=== PATIENT | female | born 1945 | race Caucasian/White ===

== ENCOUNTER 2017-04-18 13:04 | Day surgery (SDC) | payer OTHER ==
[2017-04-18] MEDS ORDERED: ACETAMINOPHEN 325 MG TABLET (FP) PO ONE (13:30)
[2017-04-18] MEDS ORDERED: ZOLEDRONIC ACID/MAN/WATER 5 MG/100 ML INFUS..BTL IVPB ONE (13:30)
[2017-04-18 13:40] VITALS: BP 150/64; PULSE 82; BMI 22.3
[2017-04-18 15:31] VITALS: TEMP 97.3
== END 2017-04-18 15:35 | disposition home or self-care (01) ==
LOC: FINFUSION 13:04 → FM/S 13:05 → FINFUSION 15:35
PROVIDERS: ATTEND Specialist
PROC: 3E033GC Introduction of Other Therapeutic Substance into Peripheral Vein, Percutaneous Approach (ICD-10-PCS; principal; 2017-04-18)
DX: M81.0 Age-related osteoporosis without current pathological fracture (principal)
CPT/HCPCS: 96365; J3489

== ENCOUNTER 2017-04-19 14:30 | Emergency (ER) | payer OTHER ==
[2017-04-19 14:42] VITALS: BP 157/79; BMI 22.3
[2017-04-19] MEDS ORDERED: ONDANSETRON 4 MG/2 ML VIAL ONE (14:59)
[2017-04-19] MEDS ORDERED: ONDANSETRON 4 MG/2 ML VIAL IVPUSH ONE (15:02)
[2017-04-19] MEDS ORDERED: HYDROCORTISONE SOD SUCCINATE 2 ML ONE (15:18)
[2017-04-19] MEDS ORDERED: HYDROCORTISONE SOD SUCCINATE 100 MG/2 ML VIAL IVPB ONE (15:18)
[2017-04-19] MEDS ORDERED: SODIUM CHLORIDE 1,000 ML IV STA (15:18)
[2017-04-19] MEDS ORDERED: ACETAMINOPHEN INJECTION 100 ML IVPB ONE (15:28)
[2017-04-19 15:31] LABS: MCH 29.8 pg (25.7-33.7); MCHC 34.5 g/dl (32.0-36.0); MEAN CELL VOLUME 86.5 fl (80-96); MEAN PLT VOLUME 7.5 fl (7.5-11.1); PLATELET COUNT 149 K/MM3 (134-434); RDW 11.7 % (11.6-15.6); WHITE BLOOD COUNT 9.5 K/mm3 (4.0-10.8)
[2017-04-19 15:43] LABS: ALBUMIN 4.1 g/dl (3.5-5.0); ALK PHOS 52 U/L (32-92); ANION GAP 9 (8-16); BILIRUBIN,TOTAL 0.9 mg/dl (0.2-1.0); CALCIUM 8.9 mg/dl (8.4-10.2); CO2 25 mmol/L (22-28); CREATININE 0.6 mg/dl (0.6-1.3); GLUCOSE,RANDOM 109 mg/dl (74-106); MAGNESIUM 1.8 mg/dL (1.8-2.4); PLATELET ESTIMATE ADEQUATE; SGOT/AST 31 U/L (10-42); SGPT/ALT 30 U/L (10-40); TOT PROT 6.6 g/dl (6.4-8.3)
--- NOTE | 2017-04-19 16:01 | PDOC ---
History of Present Illness - General History Source: Patient Exam Limitations: No Limitations - History of Present Illness Initial Comments: 04/19/17 16:13 Patient is a 72 year old woman with a significant past medical history of PMR, HTN and HLP who presents to the ED with complaints of back pain that began at 4: 15am this morning. Patient reports taking Reclast yesterday afternoon for osteoporosis due to steroids taken for PMR and states she was awoken at 4:15am due to intense back pain. She reports taking a tylenol before going back to sleep. Patient states waking up this morning still feeling unwell and states experiencing shaky chills after finishing her breakfast. Patient reports experiencing 3 episodes of vomiting, and states she vomited all vitamins she took this morning so it is possible she vomited any medication taking before eating breakfast. Patient states experiencing general body ache secondary to shaky chills. She reports to be unable to tolerate any liquid PO. Patient reports taking 5 mg of medrol daily , 4 mg in the morning and 1 mg with dinner. Denies chest pain, SOB. Denies contact with sick individual, out of state travel. Denies any other symptoms. Allergies: Levofloxacin Social history: None Surgical history: None PMD: Dr. Valentino 04/19/17 17:07 <Gamaliel Boyd - Last Filed: 04/19/17 17:07> <Zhang Penn - Last Filed: 04/19/17 18:00> - General Chief Complaint: Pain Stated Complaint: ACHINESS, BACK PAIN, NAUSEA Time Seen by Provider: 04/19/17 15:16 Past History <Gamaliel Boyd - Last Filed: 04/19/17 17:07> - Past Medical History Cardiac Disorders: Yes (STENTS X2) COPD: No HTN: Yes Hypercholesterolemia: Yes Other medical history: polymyalgias - Surgical History Appendectomy: Yes Cholecystectomy: Yes Orthopedic Surgery: Yes - Suicide/Smoking/Psychosocial Hx Smoking History: Never smoked Have you smoked in the past 12 months: No Hx Alcohol Use: No Drug/Substance Use Hx: No Substance Use Type: None <Zhang Penn - Last Filed: 04/19/17 18:00> - Past Medical History Allergies/Adverse Reactions: Allergies Allergy/AdvReac Type Severity Reaction Status Date / Time levofloxacin [From Levaquin] Allergy Verified 04/19/17 14:33 Home Medications: Ambulatory Orders Amlodipine Besylate [Norvasc -] 5 mg PO DAILY 04/19/17 Aspirin [Aspirin EC] 81 mg PO DAILY 04/19/17 Atorvastatin Ca [Lipitor] 40 mg PO HS 04/19/17 Desloratadine/Pseudoephedrine [Clarinex-D 12 Hour Tablet] 1 each PO DAILY Fluticasone Prop 0.05% Nasal [Flonase -] 1 - 2 spray NS DAILY 04/19/17 Lisinopril [Prinivil -] 40 mg PO DAILY 04/19/17 Methylprednisolone 10 mg PO DAILY 04/19/17 Metoprolol Succinate [Toprol XL -] 12.5 mg PO DAILY 04/19/17 Ondansetron [Ondansetron Odt] 8 mg PO QID PRN #12 tab.rapdis 04/19/17 Review of Systems - Review of Systems Able to Perform ROS?: Yes Comments:: 04/19/17 16:13 CONSTITUTIONAL:+Shaky Chills. Absent: Fever, Diaphoresis, Generalized Weakness, Malaise, Loss of Appetite HEENT: Absent: Rhinorrhea, Nasal Congestion, Throat Pain, Throat Swelling, Difficulty Swallowing, Mouth Swelling, Ear Pain, Eye Pain, Visual Changes CARDIOVASCULAR: Absent: Chest Pain, Syncope, Palpitations, Irregular Heart Rate, Lightheadedness , Peripheral Edema RESPIRATORY: Absent: Cough, Shortness of Breath, SOB with Exertion, Orthopnea, Wheezing, Stridor, Hemoptysis GASTROINTESTINAL: +Vomiting. Absent: Abdominal pain, Abdominal Distension, Nausea, Diarrhea, Constipation, Melena, Hematochezia GENITOURINARY: Absent: Dysuria, Frequency, Urgency, Hesitancy, Flank Pain, Genital Pain MUSCULOSKELETAL: +Back Pain. Absent: Myalgia, Arthralgia, Joint Swelling, Back pain, Neck Pain SKIN: Absent: Rash, Itching, PalloR HEMATOLOGIC/IMMUNOLOGIC: Absent: Easy Bleeding, Easy Bruising, Lymphadenopathy, Frequent infections ENDOCRINE: Absent: Unexplained Weight Gain, Unexplained Weight Loss, Heat Intolerance, Cold Intolerance NEUROLOGIC: Absent: Headache, Focal Weakness, Paresthesias, Vertigo, Lightheadedness, Unsteady Gait, Seizure, Mental Status Changes, Incontinence PSYCHIATRIC: Absent: Anxiety, Depression All Other Systems: Reviewed and Negative <Gamaliel Boyd - Last Filed: 04/19/17 17:07> *Physical Exam - Vital Signs Last Vital Signs Temp Pulse Resp BP Pulse Ox 99.7 F H 104 H 18 157/79 97 04/19/17 14:30 04/19/17 15:12 04/19/17 15:12 04/19/17 14:30 04/19/17 15:12 - Physical Exam Comments: 04/19/17 16:13 GENERAL: The patient is awake, alert, and fully oriented, in no acute distress. HEAD: Normal with no signs of trauma. EYES: Pupils equal, round and reactive to light, extraocular movements intact, sclera anicteric, conjunctiva clear. ENT: Ears normal, nares patent, oropharynx clear without exudates. Moist mucous membranes. NECK: Normal range of motion, supple without lymphadenopathy, JVD, or masses. LUNGS: Breath sounds equal, clear to auscultation bilaterally. No wheezes, and no crackles. HEART: Regular rate and rhythm, normal S1 and S2 without murmur, rub or gallop. ABDOMEN: Soft, nontender, normoactive bowel sounds. No guarding, no rebound. No masses. EXTREMITIES: Normal range of motion, no edema. No clubbing or cyanosis. No cords , erythema, or tenderness. NEUROLOGICAL: Cranial nerves II through XII grossly intact. Normal speech, normal gait. PSYCH: Normal mood, normal affect. SKIN: Warm, Dry, normal turgor, no rashes or lesions noted. <DebGamaliel smith - Last Filed: 04/19/17 17:07> - Vital Signs Last Vital Signs Temp Pulse Resp BP Pulse Ox 99.7 F H 104 H 18 157/79 97 04/19/17 14:30 04/19/17 15:12 04/19/17 15:12 04/19/17 14:30 04/19/17 15:12 <Zhang Penn - Last Filed: 04/19/17 18:00> ED Treatment Course - LABORATORY CBC & Chemistry Diagram: 04/19/17 15:20 04/19/17 15:20 - ADDITIONAL ORDERS Additional order review: Laboratory Results 04/19/17 15:20 Sodium 133 L Potassium 3.4 L Chloride 99 Carbon Dioxide 25 Anion Gap 9 BUN 13 Creatinine 0.6 Creat Clearance w eGFR > 60 Random Glucose 109 H Calcium 8.9 Magnesium 1.8 Total Bilirubin 0.9 AST 31 ALT 30 Alkaline Phosphatase 52 Total Protein 6.6 Albumin 4.1 04/19/17 15:20 RBC 5.05 MCV 86.5 MCHC 34.5 RDW 11.7 MPV 7.5 Neutrophils % No Result Required. Lymphocytes % No Result Required. - Medications Given in the ED: ED Medications Discontinued Medications Generic Name Dose Route Start Last Admin Trade Name Freq PRN Reason Stop Dose Admin Hydrocortisone Sodium Succinate 100 mg 04/19/17 15:18 04/19/17 15:27 Solu-Cortef - IVPB 04/19/17 15:19 100 mg ONCE ONE Administration Ondansetron HCl 4 mg 04/19/17 15:02 04/19/17 15:02 Zofran Injection IVPUSH 04/19/17 15:03 4 mg NOW ONE Administration <Gamaliel Boyd - Last Filed: 04/19/17 17:07> - LABORATORY CBC & Chemistry Diagram: 04/19/17 15:20 04/19/17 15:20 - ADDITIONAL ORDERS Additional order review: Laboratory Results 04/19/17 15:20 Sodium 133 L Potassium 3.4 L Chloride 99 Carbon Dioxide 25 Anion Gap 9 BUN 13 Creatinine 0.6 Creat Clearance w eGFR > 60 Random Glucose 109 H Calcium 8.9 Magnesium 1.8 Total Bilirubin 0.9 AST 31 ALT 30 Alkaline Phosphatase 52 Total Protein 6.6 Albumin 4.1 04/19/17 15:20 RBC 5.05 MCV 86.5 MCHC 34.5 RDW 11.7 MPV 7.5 Neutrophils % No Result Required. Lymphocytes % No Result Required. - RADIOLOGY Radiology Studies Ordered: Category Date Time Status CHEST X-RAY PORTABLE* [RAD] Stat Radiology 04/19/17 15:17 Taken - Medications Given in the ED: ED Medications Discontinued Medications Generic Name Dose Route Start Last Admin Trade Name Freq PRN Reason Stop Dose Admin Hydrocortisone Sodium Succinate 100 mg 04/19/17 15:18 04/19/17 15:27 Solu-Cortef - IVPB 04/19/17 15:19 100 mg ONCE ONE Administration Ondansetron HCl 4 mg 04/19/17 15:02 04/19/17 15:02 Zofran Injection IVPUSH 04/19/17 15:03 4 mg NOW ONE Administration <Zhang Penn - Last Filed: 04/19/17 18:00> Medical Decision Making - Medical Decision Making 04/19/17 17:50 Patient is a 72-year-old woman with a history of polymyalgia rheumatica. She got her first infusion of Reclast yesterday and then last night started to have a reaction with chills, nausea, and vomiting. She was unable to keep down oral fluids, so she came to the ED. On examination, there were no abnormal findings including a benign abdominal examination. After IV fluids, IV steroids, and IV Zofran, the patient felt better. She is able to tolerate oral intake. She appears well and feels comfortable. She is requesting discharge home as her symptoms have resolved. I discussed this with her and advised that the symptoms may persist for some period of time. She agrees to try the Zofran at home and to return if symptoms progress. Laboratory studies reviewed: Mild hyponatremia. Mild hypokalemia. Normal magnesium. K-Dur ordered. 1 L of normal saline given. K-Dur should correct the potassium. White blood cell count normal but positive left shift, likely from drug reaction. No signs of infection. Chest x-ray is clear. Laboratory Results - last 24 hr 04/19/17 04/19/17 04/19/17 15:20 15:20 16:15 WBC 9.5 RBC 5.05 Hgb 15.1 Hct 43.7 MCV 86.5 MCH 29.8 MCHC 34.5 RDW 11.7 Plt Count 149 MPV 7.5 Neutrophils % No Result Required. Neutrophils % (Manual) 96.0 H* Band Neutrophils % 2.0 Lymphocytes % No Result Required. Lymphocytes % (Manual) 2.0 L Platelet Estimate Adequate Sodium 133 L Potassium 3.4 L Chloride 99 Carbon Dioxide 25 Anion Gap 9 BUN 13 Creatinine 0.6 Creat Clearance w eGFR > 60 Random Glucose 109 H Calcium 8.9 Magnesium 1.8 Total Bilirubin 0.9 AST 31 ALT 30 Alkaline Phosphatase 52 Total Protein 6.6 Albumin 4.1 Urine Color Yellow Urine Appearance Clear Urine pH 7.5 Ur Specific [place] 1.015 Urine Protein Negative Urine Glucose (UA) Negative Urine Ketones Negative Urine Blood Negative Urine Nitrite Negative Urine Bilirubin Negative Urine Urobilinogen 0.2 Ur Leukocyte Esterase Negative Impression: Drug reaction from Reclast. Now improved. Stable for discharge home. Patient will monitor her condition closely and follow-up as needed. 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 <Zhang Penn - Last Filed: 04/19/17 18:00> *DC/Admit/Observation/Transfer - Attestations Scribe Attestion: 04/19/17 16:13 Documentation prepared by Gamaliel Boyd, acting as medical staff coordinator for Zhang Penn MD/DO. <Gamaliel Boyd - Last Filed: 04/19/17 17:07> - Discharge Dispostion Admit: No - Attestations Physician Attestion: 04/19/17 18:00 The scribe's documentation has been prepared under my direction and personally reviewed by me in its entirety. I have confirmed that the note above accurately reflects all work, treatment, procedures, and medical decision- making performed by me. <Zhang Penn - Last Filed: 04/19/17 18:00> Diagnosis at time of Disposition: Drug reaction Qualifiers: Encounter type: initial encounter Qualified Code(s): T88.7XXA - Unspecified adverse effect of drug or medicament, initial encounter - Discharge Dispostion Disposition: HOME Condition at time of disposition: Stable - Prescriptions Prescriptions: Ondansetron [Ondansetron Odt] 8 mg PO QID PRN #12 tab.rapdis PRN Reason: nausea or vomiting - Referrals Referrals: Nicholas Valentino MD [Primary Care Provider] - - Patient Instructions Printed Discharge Instructions: DI for Adverse Drug Reaction -- GI Intolerance Additional Instructions: Today you were evaluated for chills and vomiting. The symptoms are very likely related to a reaction to the Reclast drug. Rest at home. Eat lightly. Start with clear fluids and then advance as tolerated. Take Zofran ODT prior to trying to eat or take medication. Follow-up with your primary care physician. Return to the emergency department for any severe or progressive symptoms. - Post Discharge Activity
[2017-04-19 16:24] LABS: PH,URINE 7.5 (4.5-8); URINE APPEARANCE Clear; URINE BILIRUBIN Negative (NEGATIVE); URINE BLOOD Negative (NEGATIVE); URINE GLUCOSE (UA) Negative (NEGATIVE); URINE KETONE Negative (NEGATIVE); URINE LEUK ESTERASE Negative (NEGATIVE); URINE NITRITE Negative (NEGATIVE); URINE PROTEIN Negative (NEGATIVE); URINE UROBILINOGEN 0.2 (0.2-1.0)
[2017-04-19 16:29] LABS: URINE COLOR YELLOW
[2017-04-19 16:38] VITALS: PULSE 98; TEMP 97.8
[2017-04-19] MEDS ORDERED: POTASSIUM CHLORIDE TABS 20 MEQ TABLET.ER (FP) PO ONE ×3 (17:46→17:59)
== END 2017-04-19 18:05 | disposition home or self-care (01) ==
LOC: FER 14:30
PROC: 3E033GC Introduction of Other Therapeutic Substance into Peripheral Vein, Percutaneous Approach (ICD-10-PCS; principal; 2017-04-19)
PROC: 3E0337Z Introduction of Electrolytic and Water Balance Substance into Peripheral Vein, Percutaneous Approach (ICD-10-PCS; 2017-04-19)
DX: T88.7XXA Unspecified adverse effect of drug or medicament, initial encounter (principal); X58.XXXA Exposure to other specified factors, initial encounter; Y93.9 Activity, unspecified; Y92.9 Unspecified place or not applicable; I10 Essential (primary) hypertension; E78.5 Hyperlipidemia, unspecified; M35.3 Polymyalgia rheumatica; Z95.5 Presence of coronary angioplasty implant and graft
CPT/HCPCS: 36415; 71010-TC; 80053; 81003; 83735; 85025; 99284-25

== ENCOUNTER 2018-11-13 09:24 | Day surgery (SDC) | payer OTHER ==
[2018-11-13] MEDS ORDERED: INDOMETHACIN 50 MG RECTAL SUPPOSITORY PR ONE (10:39)
[2018-11-13 10:45] VITALS: BMI 21.4
[2018-11-13] MEDS ORDERED: MIDAZOLAM HCL 2 MG/2 ML SINGLE DOSE VIAL ONE (11:30)
[2018-11-13] MEDS ORDERED: CEFAZOLIN 1 GM/D5W 1 GM/50 ML BAG ONE (11:31)
[2018-11-13] MEDS ORDERED: IOHEXOL 300 MG/ML INFUS..BTL IJ ONE (12:05)
[2018-11-13 12:45] VITALS: TEMP 98.9
[2018-11-13] MEDS ORDERED: ONDANSETRON 4 MG/2 ML VIAL IVPUSH PRN (13:16)
[2018-11-13] MEDS ORDERED: KETOROLAC TROMETHAMINE 30 MG/1 ML VIAL IVPUSH ONE (13:17)
[2018-11-13] MEDS ORDERED: LACTATED RINGERS SOLUTION 1,000 ML IV SCH (13:30)
[2018-11-13 16:20] VITALS: BP 145/75; PULSE 75
== END 2018-11-13 16:10 | disposition home or self-care (01) ==
LOC: JASU-ENDO 09:24
PROVIDERS: ATTEND Internal Medicine Gastroenterology
PROC: 0FC98ZZ Extirpation of Matter from Common Bile Duct, Via Natural or Artificial Opening Endoscopic (ICD-10-PCS; 2018-11-13)
PROC: 0F798DZ Dilation of Common Bile Duct with Intraluminal Device, Via Natural or Artificial Opening Endoscopic (ICD-10-PCS; principal; 2018-11-13 11:45)
DX: K80.30 Calculus of bile duct with cholangitis, unspecified, without obstruction (principal)
CPT/HCPCS: 36415; 76000-TC-FY; 82150

== ENCOUNTER 2018-12-30 13:03 | Day surgery (SDC) | payer OTHER ==
[2018-12-29 17:03] VITALS: BMI 22.4
[2018-12-30] MEDS ORDERED: MIDAZOLAM HCL 2 MG/2 ML SINGLE DOSE VIAL ONE (13:11)
[2018-12-30] MEDS ORDERED: IOHEXOL 300 MG/ML INFUS..BTL IV ONE (14:10)
[2018-12-30 14:34] VITALS: TEMP 98.4
[2018-12-30 15:39] VITALS: BP 141/49; PULSE 74
--- NOTE | 2019-01-05 18:09 | PATH ---
Surgical Pathology Report Patient Name: NATALIA BURRELL [facility]. Rec. #: [id number] /Age/Gender: 1945 (Age: 73) / F Account: [id number] Location: [facility]-ENDOSCOPY Taken: 12/30/2018 Received: 12/31/2018 Reported: 01/05/2019 Physicians: Dimitry Harding M.D. Specimen(s) Received OLD STENT Clinical History Choledocholithiasis, removal of stent Final Diagnosis OLD STENT, REMOVAL: SEGMENT OF STENT. GROSS EXAMINATION ONLY. Electronically Signed Carissa Aquino M.D. Gross Description Received in a container, labeled "stent" is a segment of blue plastic tube consistent with stent measuring 17 cm in length and 0.2 cm diameter. Gross examination only.
== END 2018-12-30 15:35 | disposition home or self-care (01) ==
LOC: JASU-ENDO 13:03
PROVIDERS: ATTEND Internal Medicine Gastroenterology
PROC: 0FPB8DZ Removal of Intraluminal Device from Hepatobiliary Duct, Via Natural or Artificial Opening Endoscopic (ICD-10-PCS; principal; 2018-12-30 14:00)
DX: Z46.59 Encounter for fitting and adjustment of other gastrointestinal appliance and device (principal)
CPT/HCPCS: 76000-TC-FY; 88300-TC

== ENCOUNTER 2022-07-24 06:57 | Day surgery (SDC) | payer OTHER ==
[2022-07-19 17:32] VITALS: BMI 21.4
[2022-07-24] MEDS ORDERED: CARBACHOL 0.01% INTRA-OCULAR 1.5 ML VIAL ONE (07:10)
[2022-07-24] MEDS ORDERED: TETRACAINE 0.5% OPHTH SOLN 2 ML BOTTLE ONE (07:10)
[2022-07-24] MEDS ORDERED: NEO/POLYMYX B SULF/DEXAMETH OPHTHALMIC 5ML BOTTLE ONE (07:10)
[2022-07-24] MEDS ORDERED: BSS (NA/CA/MG/K) BALANCED SALT SOLUTION OPHTH SOLN 15 ML BOTTLE ONE (07:10)
[2022-07-24] MEDS: PHENYLEPHRINE 2.5% OPTHALMIC DROP 2ML BOTTLE ONE ×3 (07:30→07:40)
[2022-07-24] MEDS: TROPICAMIDE 1% OPHTH SOLN 15 ML BOTTLE ONE ×3 (07:30→07:40)
[2022-07-24] MEDS: CYCLOPENTOLATE 2% OPHTH SOLN 2 ML BOTTLE ONE ×3 (07:30→07:40)
[2022-07-24] MEDS: CIPROFLOXACIN 0.3% EYE DROPS 5 ML BOTTLE ONE ×3 (07:30→07:40)
[2022-07-24] MEDS ORDERED: MIDAZOLAM HCL 2 MG/2 ML SINGLE DOSE VIAL ONE ×2 (08:51→09:12)
[2022-07-24] MEDS ORDERED: ONDANSETRON 4 MG/2 ML VIAL ONE (08:59)
[2022-07-24 09:35] VITALS: TEMP 97.8
[2022-07-24 10:08] VITALS: BP 114/67; PULSE 69; RESP 18
== END 2022-07-24 10:10 | disposition home or self-care (01) ==
LOC: FASU 06:57
PROVIDERS: ATTEND Ophthalmology
PROC: 08RJ3JZ Replacement of Right Lens with Synthetic Substitute, Percutaneous Approach (ICD-10-PCS; principal; 2022-07-24 09:02)
DX: H26.8 Other specified cataract (principal)
CPT/HCPCS: 66984; V2632

== ENCOUNTER 2022-09-11 06:35 | Day surgery (SDC) | payer OTHER ==
[2022-09-03 12:05] VITALS: BMI 21.4
[2022-09-11] MEDS ORDERED: PHENYLEPHRINE/KETOROLAC 4 ML VIAL IO ONE (07:12)
[2022-09-11] MEDS ORDERED: TETRACAINE 0.5% OPHTH SOLN 2 ML BOTTLE ONE (07:12)
[2022-09-11] MEDS ORDERED: LIDOCAINE 1% P/F 10 MG/ML VIAL ONE (07:12)
[2022-09-11] MEDS ORDERED: BSS (NA/CA/MG/K) BALANCED SALT SOLUTION OPHTH SOLN 15 ML BOTTLE ONE (07:12)
[2022-09-11] MEDS ORDERED: EPINEPHrine/PF 1 MG/1 ML (1:1,000) AMPULE ONE (07:12)
[2022-09-11] MEDS ORDERED: TRYPAN BLUE 0.5 ML DISP.SYRIN ONE (07:12)
[2022-09-11] MEDS ORDERED: NEO/POLYMYX B SULF/DEXAMETH OPHTHALMIC 5ML BOTTLE ONE (07:13)
[2022-09-11] MEDS ORDERED: LIDOCAINE HCL/PF 1% SDV 5ML VIAL ONE (07:13)
[2022-09-11] MEDS ORDERED: ACETYLCHOLINE 1:100 INTRA-OCUL 20 MG/2 ML KIT ONE (07:13)
[2022-09-11] MEDS ORDERED: CARBACHOL 0.01% INTRA-OCULAR 1.5 ML VIAL ONE (07:13)
[2022-09-11] MEDS: TROPICAMIDE 1% OPHTH SOLN 15 ML BOTTLE ONE ×3 (07:20→07:30)
[2022-09-11] MEDS: CIPROFLOXACIN 0.3% EYE DROPS 5 ML BOTTLE ONE ×3 (07:20→07:30)
[2022-09-11] MEDS: CYCLOPENTOLATE 2% OPHTH SOLN 2 ML BOTTLE ONE ×3 (07:20→07:30)
[2022-09-11] MEDS: PHENYLEPHRINE 2.5% OPTHALMIC DROP 2ML BOTTLE ONE ×3 (07:20→07:30)
[2022-09-11] MEDS ORDERED: MIDAZOLAM HCL 2 MG/2 ML SINGLE DOSE VIAL ONE (07:40)
[2022-09-11 09:14] VITALS: RESP 19; TEMP 97.8
[2022-09-11 09:18] VITALS: BP 116/55; PULSE 62
== END 2022-09-11 09:30 | disposition home or self-care (01) ==
LOC: FASU 06:35
PROVIDERS: ATTEND Ophthalmology
PROC: 08RK3JZ Replacement of Left Lens with Synthetic Substitute, Percutaneous Approach (ICD-10-PCS; principal; 2022-09-11 08:23)
DX: H26.8 Other specified cataract (principal)
CPT/HCPCS: 66984; V2632; J1097